=== PATIENT | female | born 1970 | race Caucasian/White ===

== ENCOUNTER → 2016-11-07 | Outpatient (CLI) | payer MEDICAID | END | disposition home or self-care (01) | LOC: RESCLI 02:52 | DX: Z00.00 Encounter for general adult medical examination without abnormal findings (principal); M51.26 Other intervertebral disc displacement, lumbar region; J32.9 Chronic sinusitis, unspecified; G62.9 Polyneuropathy, unspecified; H04.123 Dry eye syndrome of bilateral lacrimal glands ==

== ENCOUNTER → 2016-11-15 | Outpatient (CLI) | payer OTHER ==
[2016-11-15 09:38] LABS: BASO # 0.1 10*3/uL (0.0-0.1); BASO % 0.9 % (0.0-1.0); EOS # 0.3 10*3/uL (0.0-0.4); EOS % 3.6 % (1.0-4.0); HEMATOCRIT 45.2 % (42.0-52.0); HEMOGLOBIN 15.7 g/dl (14.0-18.0); LYMPH # 2.6 10*3/uL (1.3-4.4); LYMPH % 29.7 % (27.0-41.0); MEAN CELL VOLUME 95.4 fl (80.0-94.0); MEAN CORPUSCULAR HGB 33.1 pg (27.0-31.0); MEAN CORPUSCULAR HGB CONC 34.7 g/dl (33.0-37.0); MONO # 0.4 10*3/uL (0.1-1.0); NEUT # 5.3 10*3/uL (2.3-7.9); NEUT % 60.5 % (47.0-73.0); PLATELET COUNT AUTOMATED 259 10*3/uL (130-400); RED BLOOD COUNT 4.74 10*6/uL (4.50-5.90); RED CELL DISTRI WIDTH 12.6 % (0-14.5); WHITE BLOOD COUNT 8.8 10*3/uL (4.8-10.8)
[2016-11-15 09:58] LABS: ALKALINE PHOSPHATASE 145 U/L (45-117); BILIRUBIN, TOTAL 0.7 mg/dl (0.2-1.0); BUN 7 mg/dl (7-24); CARBON DIOXIDE 29 mmol/L (21-32); CHLORIDE 104 mmol/L (98-107); CHOLESTEROL 174 mg/dL (<200); EST GLOM FILT AFRICAN AMERICAN > 60 ml/min; FREE T4 0.87 ng/dl (0.76-1.46); GLUCOSE 92 mg/dL (65-99); HDL CHOLESTEROL 59 mg/dl (40-60); LDL CHOLESTEROL 85 mg/dL (9-159); POTASSIUM 3.8 mmol/L (3.5-5.1); SGOT/AST 38 IU/L (3-35); SGPT/ALT 44 U/L (12-78); SODIUM 139 mmol/L (136-145); TOTAL PROTEIN 7.6 gm/dL (6.4-8.2); TRIGLYCERIDES 150 mg/dl (<150); VLDL CHOLESTEROL 30 mg/dL (6-40)
[2016-11-15 10:07] LABS: HEMOGLOBIN A1c 5.2 % (4.8-5.6)
== END | disposition home or self-care (01) ==
LOC: LAB 08:59
PROVIDERS: Family Medicine
DX: Z00.00 Encounter for general adult medical examination without abnormal findings (principal)

== ENCOUNTER → 2016-11-21 | Outpatient (CLI) | payer OTHER | END | disposition home or self-care (01) | LOC: RESCLI 02:42 | DX: M51.26 Other intervertebral disc displacement, lumbar region (principal); G62.9 Polyneuropathy, unspecified; H04.123 Dry eye syndrome of bilateral lacrimal glands; J30.9 Allergic rhinitis, unspecified; R00.0 Tachycardia, unspecified ==

== ENCOUNTER → 2016-12-26 | Outpatient (CLI) | payer OTHER | END | disposition home or self-care (01) | LOC: RESCLI 02:06 | DX: M51.26 Other intervertebral disc displacement, lumbar region (principal); G62.9 Polyneuropathy, unspecified; H04.123 Dry eye syndrome of bilateral lacrimal glands; J30.9 Allergic rhinitis, unspecified; R00.0 Tachycardia, unspecified; Z72.0 Tobacco use; Z71.6 Tobacco abuse counseling ==

== ENCOUNTER → 2017-01-16 | Outpatient (CLI) | payer OTHER | END | disposition home or self-care (01) | LOC: RESCLI 03:21 | DX: J30.9 Allergic rhinitis, unspecified (principal); M51.26 Other intervertebral disc displacement, lumbar region; G62.9 Polyneuropathy, unspecified; H04.123 Dry eye syndrome of bilateral lacrimal glands; F17.200 Nicotine dependence, unspecified, uncomplicated; Z71.6 Tobacco abuse counseling ==

== ENCOUNTER → 2017-02-21 | Outpatient (CLI) | payer OTHER | END | disposition home or self-care (01) | LOC: RESCLI 02:36 | DX: M51.26 Other intervertebral disc displacement, lumbar region (principal); G62.9 Polyneuropathy, unspecified; F17.200 Nicotine dependence, unspecified, uncomplicated ==

== ENCOUNTER → 2017-03-13 | Outpatient (CLI) | payer OTHER | END | disposition home or self-care (01) | LOC: RESCLI 02:23 | DX: M54.16 Radiculopathy, lumbar region (principal); J45.909 Unspecified asthma, uncomplicated; R12 Heartburn ==

== ENCOUNTER → 2017-03-22 | Outpatient (CLI) | payer OTHER | END | disposition home or self-care (01) | LOC: MRI 00:47 | DX: M47.26 Other spondylosis with radiculopathy, lumbar region (principal); M48.07 Spinal stenosis, lumbosacral region ==

== ENCOUNTER 2017-06-16 15:51 | Emergency (ER) | payer OTHER ==
[~2017-06-16] VITALS: Wt 77.1 kg
[2017-06-16] MEDS ORDERED: CEPHALEXIN500 M1 PO (17:19)
== END 2017-06-16 17:27 | disposition home or self-care (01) ==
LOC: ED 15:51
DX: S91.131A Puncture wound without foreign body of right great toe without damage to nail, initial encounter (principal); F17.200 Nicotine dependence, unspecified, uncomplicated; W22.8XXA Striking against or struck by other objects, initial encounter; Y93.89 Activity, other specified; Y99.8 Other external cause status; Y92.89 Other specified places as the place of occurrence of the external cause

== ENCOUNTER → 2017-10-09 | Outpatient (CLI) | payer OTHER ==
[~2017-10-09] MED LIST: CEPHALEXIN500 M1 PO
== END | disposition home or self-care (01) ==
LOC: RESCLI 10-02 03:51
DX: M51.26 Other intervertebral disc displacement, lumbar region (principal); M54.42 Lumbago with sciatica, left side; G89.29 Other chronic pain; J32.9 Chronic sinusitis, unspecified; F32.9 Major depressive disorder, single episode, unspecified; F41.1 Generalized anxiety disorder; K21.9 Gastro-esophageal reflux disease without esophagitis; Z72.0 Tobacco use; Z71.6 Tobacco abuse counseling

== ENCOUNTER → 2017-11-13 | Outpatient (CLI) | payer OTHER | END | disposition home or self-care (01) | LOC: RESCLI 00:15 | DX: J45.30 Mild persistent asthma, uncomplicated (principal); J40 Bronchitis, not specified as acute or chronic; F41.1 Generalized anxiety disorder; M54.42 Lumbago with sciatica, left side; K21.9 Gastro-esophageal reflux disease without esophagitis; J30.2 Other seasonal allergic rhinitis; F17.210 Nicotine dependence, cigarettes, uncomplicated; F33.9 Major depressive disorder, recurrent, unspecified; Z71.6 Tobacco abuse counseling ==

== ENCOUNTER → 2018-02-22 | Outpatient (CLI) | payer OTHER | END | disposition home or self-care (01) | LOC: RESCLI 09:06 | DX: Z00.01 Encounter for general adult medical examination with abnormal findings (principal); M77.9 Enthesopathy, unspecified; R40.0 Somnolence; M54.10 Radiculopathy, site unspecified; R74.0 Nonspecific elevation of levels of transaminase and lactic acid dehydrogenase [LDH]; M77.11 Lateral epicondylitis, right elbow; F41.1 Generalized anxiety disorder; J40 Bronchitis, not specified as acute or chronic; J45.30 Mild persistent asthma, uncomplicated; J30.2 Other seasonal allergic rhinitis; K21.9 Gastro-esophageal reflux disease without esophagitis; J32.9 Chronic sinusitis, unspecified; F31.30 Bipolar disorder, current episode depressed, mild or moderate severity, unspecified; F17.210 Nicotine dependence, cigarettes, uncomplicated; Z79.899 Other long term (current) drug therapy; Z88.8 Allergy status to other drugs, medicaments and biological substances ==

== ENCOUNTER → 2018-03-21 | Outpatient (CLI) | payer OTHER ==
[2018-03-21 12:32] LABS: BASO # 0.1 10*3/uL (0.0-0.1); BASO % 1.2 % (0.0-1.0); EOS # 0.3 10*3/uL (0.0-0.4); EOS % 4.5 % (1.0-4.0); HEMATOCRIT 41.8 % (42.0-52.0); HEMOGLOBIN 14.5 g/dl (14.0-18.0); LYMPH # 2.2 10*3/uL (1.3-4.4); LYMPH % 34.1 % (27.0-41.0); MEAN CELL VOLUME 94.1 fl (80.0-94.0); MEAN CORPUSCULAR HGB 32.7 pg (27.0-31.0); MEAN CORPUSCULAR HGB CONC 34.7 g/dl (33.0-37.0); MONO # 0.5 10*3/uL (0.1-1.0); MONO % 6.9 % (3.0-9.0); NEUT # 3.4 10*3/uL (2.3-7.9); PLATELET COUNT AUTOMATED 243 10*3/uL (130-400); RED BLOOD COUNT 4.44 10*6/uL (4.50-5.90); WHITE BLOOD COUNT 6.5 10*3/uL (4.8-10.8)
[2018-03-21 13:06] LABS: ALBUMIN 3.8 gm/dl (3.1-4.5); BUN 9 mg/dl (7-24); CHLORIDE 101 mmol/L (98-107); POTASSIUM 3.7 mmol/L (3.5-5.1); SODIUM 136 mmol/L (136-145)
[2018-03-21 13:20] LABS: ALKALINE PHOSPHATASE 160 U/L (45-117); CHOLESTEROL 180 mg/dL (<200); CREATININE 0.98 mg/dL (0.70-1.30); HDL CHOLESTEROL 44 mg/dl (40-60); SGOT/AST 30 IU/L (3-35); SGPT/ALT 33 U/L (12-78); TOTAL PROTEIN 7.3 gm/dL (6.4-8.2); TRIGLYCERIDES 411 mg/dl (<150)
[2018-03-21 14:20] LABS: VITAMIN D, 25-HYDROXY 20.4 ng/mL (30-100)
[2018-03-22 10:03] LABS: HEP B CORE AB TOTAL 006718 Negative (Negative); HEPATITIS B SURFACE AB 006395 Non Reactive (.); HEPATITIS B SURFACE AG Negative (Negative); HEPATITIS Be ANTIGEN 006619 Negative (Negative)
[2018-03-22 15:07] LABS: AB TO HEPATITIS Be AG 006635 Negative (Negative)
== END | disposition home or self-care (01) ==
LOC: LAB 11:40
PROVIDERS: Internal Medicine
DX: Z00.01 Encounter for general adult medical examination with abnormal findings (principal); M54.10 Radiculopathy, site unspecified; M77.9 Enthesopathy, unspecified; R40.0 Somnolence; Z79.899 Other long term (current) drug therapy

== ENCOUNTER → 2018-05-15 | Outpatient (CLI) | payer OTHER ==
[2018-05-15 11:40] LABS: BASO # 0.1 10*3/uL (0.0-0.1); EOS # 0.2 10*3/uL (0.0-0.4); EOS % 3.3 % (1.0-4.0); HEMATOCRIT 40.5 % (42.0-52.0); HEMOGLOBIN 14.1 g/dl (14.0-18.0); LYMPH # 2.4 10*3/uL (1.3-4.4); LYMPH % 34.2 % (27.0-41.0); MEAN CORPUSCULAR HGB 33.4 pg (27.0-31.0); MEAN CORPUSCULAR HGB CONC 34.8 g/dl (33.0-37.0); MEAN PLATELET VOLUME 9.2 fl (9.6-12.3); MONO # 0.6 10*3/uL (0.1-1.0); MONO % 8.3 % (3.0-9.0); NEUT # 3.7 10*3/uL (2.3-7.9); NEUT % 53.1 % (47.0-73.0); PLATELET COUNT AUTOMATED 294 10*3/uL (130-400); RED BLOOD COUNT 4.22 10*6/uL (4.50-5.90); RED CELL DISTRI WIDTH 13.2 % (0-14.5)
[2018-05-15 12:05] LABS: CHOLESTEROL 149 mg/dL (<200); GAMMA GLUTAMYL TRANSPEPTIDASE 235 U/L (15-85); TRIGLYCERIDES 313 mg/dl (<150); VLDL CHOLESTEROL 63 mg/dL (6-40)
[2018-05-15 12:06] LABS: HDL CHOLESTEROL 45 mg/dl (40-60); LDL CHOLESTEROL 41 mg/dL (9-159)
== END | disposition home or self-care (01) ==
LOC: LAB 11:00
PROVIDERS: Internal Medicine
DX: E78.1 Pure hyperglyceridemia (principal); D75.89 Other specified diseases of blood and blood-forming organs; R74.8 Abnormal levels of other serum enzymes

== ENCOUNTER → 2018-05-16 | Outpatient (CLI) | payer OTHER | END | disposition home or self-care (01) | LOC: RESCLI 04:41 | DX: J45.909 Unspecified asthma, uncomplicated (principal); F41.1 Generalized anxiety disorder; K21.9 Gastro-esophageal reflux disease without esophagitis; F33.9 Major depressive disorder, recurrent, unspecified; E78.1 Pure hyperglyceridemia; E55.9 Vitamin D deficiency, unspecified; R74.8 Abnormal levels of other serum enzymes; R11.2 Nausea with vomiting, unspecified; M54.40 Lumbago with sciatica, unspecified side; F17.210 Nicotine dependence, cigarettes, uncomplicated; Z71.6 Tobacco abuse counseling; Z79.899 Other long term (current) drug therapy; Z88.8 Allergy status to other drugs, medicaments and biological substances ==

== ENCOUNTER → 2018-06-28 | Outpatient (CLI) | payer OTHER | END | disposition home or self-care (01) | LOC: RESCLI 08:54 | DX: F33.9 Major depressive disorder, recurrent, unspecified (principal); J45.909 Unspecified asthma, uncomplicated; F41.1 Generalized anxiety disorder; K21.9 Gastro-esophageal reflux disease without esophagitis; E78.1 Pure hyperglyceridemia; E55.9 Vitamin D deficiency, unspecified; R74.8 Abnormal levels of other serum enzymes; R11.2 Nausea with vomiting, unspecified; M54.40 Lumbago with sciatica, unspecified side; M25.521 Pain in right elbow; M25.522 Pain in left elbow; M25.571 Pain in right ankle and joints of right foot; F17.200 Nicotine dependence, unspecified, uncomplicated; Z71.6 Tobacco abuse counseling; Z79.899 Other long term (current) drug therapy ==

== ENCOUNTER → 2018-07-05 | Outpatient (CLI) | payer OTHER | END | disposition home or self-care (01) | LOC: RAD 11:32 | DX: M25.521 Pain in right elbow (principal); M25.571 Pain in right ankle and joints of right foot ==

== ENCOUNTER → 2018-07-13 | Outpatient (CLI) | payer OTHER | END | disposition home or self-care (01) | LOC: RAD 10:13 | DX: M25.561 Pain in right knee (principal); M25.562 Pain in left knee ==

== ENCOUNTER → 2018-07-17 | Outpatient (CLI) | payer OTHER | END | disposition home or self-care (01) | LOC: RESCLI 02:12 | DX: F31.30 Bipolar disorder, current episode depressed, mild or moderate severity, unspecified (principal); J45.909 Unspecified asthma, uncomplicated; F17.200 Nicotine dependence, unspecified, uncomplicated; F41.1 Generalized anxiety disorder; K21.9 Gastro-esophageal reflux disease without esophagitis; E78.1 Pure hyperglyceridemia; E55.9 Vitamin D deficiency, unspecified; R74.8 Abnormal levels of other serum enzymes; R11.2 Nausea with vomiting, unspecified; M25.522 Pain in left elbow; M25.521 Pain in right elbow; M25.571 Pain in right ankle and joints of right foot; M54.40 Lumbago with sciatica, unspecified side; Z71.6 Tobacco abuse counseling ==

== ENCOUNTER 2018-07-30 02:55 | Emergency (ER) | payer BC, OTHER ==
[~2018-07-30] VITALS: Ht 180.3 cm; Wt 81.6 kg
[2018-08-07] MEDS ORDERED: CEPHALEXIN500 M1 PO (17:33)
== END 2018-07-30 04:16 | disposition home or self-care (01) ==
LOC: ED 02:55
DX: S61.412A Laceration without foreign body of left hand, initial encounter (principal); W31.89XA Contact with other specified machinery, initial encounter; Y93.89 Activity, other specified; Y92.89 Other specified places as the place of occurrence of the external cause; Y99.8 Other external cause status

== ENCOUNTER 2018-09-12 14:41 | Emergency (ER) | payer OTHER ==
[~2018-09-12] VITALS: Ht 180.3 cm; Wt 81.6 kg
== END 2018-09-12 16:17 | disposition home or self-care (01) ==
LOC: ED 14:41
DX: S80.01XA Contusion of right knee, initial encounter (principal); M25.562 Pain in left knee; F17.200 Nicotine dependence, unspecified, uncomplicated; W18.39XA Other fall on same level, initial encounter; Y93.89 Activity, other specified; Y92.89 Other specified places as the place of occurrence of the external cause; Y99.8 Other external cause status

== ENCOUNTER 2018-09-18 09:02 | Inpatient (IN) | payer OTHER ==
[2018-09-18] VITALS (7 sets, daily range): BP systolic 80–139; BP diastolic 45–84
[2018-09-18 09:44] LABS: BASO % 0.6 % (0.0-1.0); EOS # 0.1 10*3/uL (0.0-0.4); EOS % 1.3 % (1.0-4.0); HEMATOCRIT 42.4 % (42.0-52.0); HEMOGLOBIN 14.2 g/dl (14.0-18.0); LYMPH # 1.9 10*3/uL (1.3-4.4); LYMPH % 27.9 % (27.0-41.0); MEAN CELL VOLUME 94.4 fl (80.0-94.0); MEAN CORPUSCULAR HGB 31.6 pg (27.0-31.0); MEAN CORPUSCULAR HGB CONC 33.5 g/dl (33.0-37.0); MEAN PLATELET VOLUME 8.3 fl (9.6-12.3); MONO # 0.6 10*3/uL (0.1-1.0); MONO % 8.7 % (3.0-9.0); NEUT # 4.2 10*3/uL (2.3-7.9); NEUT % 61.2 % (47.0-73.0); PLATELET COUNT AUTOMATED 216 10*3/uL (130-400); RED BLOOD COUNT 4.49 10*6/uL (4.50-5.90); RED CELL DISTRI WIDTH 12.8 % (0-14.5); WHITE BLOOD COUNT 6.8 10*3/uL (4.8-10.8)
[2018-09-18 10:00] LABS: ALBUMIN 3.7 gm/dl (3.1-4.5); ALKALINE PHOSPHATASE 173 U/L (45-117); BUN 13 mg/dl (7-24); CHLORIDE 102 mmol/L (98-107); CREATININE 0.94 mg/dL (0.70-1.30); POTASSIUM 3.7 mmol/L (3.5-5.1); SGOT/AST 47 IU/L (3-35); SGPT/ALT 45 U/L (12-78); SODIUM 138 mmol/L (136-145); TOTAL PROTEIN 7.4 gm/dL (6.4-8.2)
[2018-09-18] MEDS ORDERED: PROTONIX40 MG PO (11:21)
[2018-09-18] MEDS ORDERED: FLONASE ALLERG9.9 ML NAS (11:21)
[2018-09-18] MEDS ORDERED: ZYRTEC10 MG PO (11:21)
[2018-09-18] MEDS ORDERED: TRINTELLIX10 MG PO (11:22)
[2018-09-18] MEDS ORDERED: VALIUM10 MG PO (11:22)
[2018-09-18] MEDS ORDERED: VITAMIN D-32000 UNI1 PO (11:23)
[2018-09-18 12:51] LABS: BILIRUBIN NEGATIVE (NEGATIVE); BLOOD NEGATIVE (NEGATIVE); CLARITY CLEAR (CLEAR); COLOR YELLOW (YELLOW); GLUCOSE NEGATIVE (NEGATIVE); KETONE NEGATIVE (NEGATIVE); LEUKO ESTERASE NEGATIVE (NEGATIVE); NITRITE NEGATIVE (NEGATIVE); UROBILINOGEN 0.2 E.U./dl (0.2-1.0)
[2018-09-18 13:05] LABS: URINE AMPHETAMINES < 1000 (1000ng/ml); URINE BARBITURATES < 200 (200ng/ml); URINE BENZODIAZEPINES > 200 (200ng/ml); URINE CANNABINOIDS (THC) < 50 (50ng/ml); URINE COCAINE < 300 (300ng/ml); URINE METHADONE < 300 (300ng/ml); URINE OPIATES < 300 (300ng/ml)
[2018-09-18 13:07] LABS: URINE PHENCYCLIDINE < 25 (25ng/ml)
[2018-09-18 13:08] LABS: BACTERIA TRACE; EPITHELIAL CELLS 0-2; RBC 0-2 rbc/hpf (0-2); WBC 0-2 wbc/hpf (0-5)
[2018-09-19] VITALS: BP 117/72
[2018-09-19 08:00] VITALS: BP 124/80
[2018-09-19 12:00] VITALS: BP 120/77
[2018-09-19 16:00] VITALS: BP 134/87
[2018-09-19 20:00] VITALS: BP 132/78
[2018-09-20] VITALS: BP 133/72
[2018-09-20 08:00] VITALS: BP 104/68
[2018-09-20 12:00] VITALS: BP 128/77
[2018-09-20 16:00] VITALS: BP 112/75
[2018-09-20] MEDS ORDERED: PROVENTIL HFA6.7 GM INH (16:15)
[2018-09-20 20:00] VITALS: BP 117/78
[2018-09-21] VITALS: BP 123/74
[2018-09-21 06:31] LABS: BASO # 0.1 10*3/uL (0.0-0.1); BASO % 1.1 % (0.0-1.0); EOS # 0.2 10*3/uL (0.0-0.4); EOS % 4.7 % (1.0-4.0); HEMOGLOBIN 14.3 g/dl (14.0-18.0); LYMPH # 2.2 10*3/uL (1.3-4.4); LYMPH % 48.9 % (27.0-41.0); MEAN CELL VOLUME 96.5 fl (80.0-94.0); MEAN CORPUSCULAR HGB 31.4 pg (27.0-31.0); MEAN CORPUSCULAR HGB CONC 32.5 g/dl (33.0-37.0); MEAN PLATELET VOLUME 9.4 fl (9.6-12.3); MONO # 0.5 10*3/uL (0.1-1.0); MONO % 11.4 % (3.0-9.0); NEUT # 1.5 10*3/uL (2.3-7.9); NEUT % 33.7 % (47.0-73.0); PLATELET COUNT AUTOMATED 204 10*3/uL (130-400); RED BLOOD COUNT 4.56 10*6/uL (4.50-5.90); RED CELL DISTRI WIDTH 12.6 % (0-14.5); WHITE BLOOD COUNT 4.5 10*3/uL (4.8-10.8)
[2018-09-21 06:59] LABS: CREATININE 1.03 mg/dL (0.70-1.30)
[2018-09-21 12:00] VITALS: BP 128/80
== END 2018-09-21 13:06 | disposition home or self-care (01) | DRG 897 ==
LOC: ED 09:02 → EDHOLD 09:44 → 5E 09:44
PROVIDERS: Family Medicine; ADMIT Internal Medicine
DX: F10.239 Alcohol dependence with withdrawal, unspecified (principal); F41.9 Anxiety disorder, unspecified; F32.9 Major depressive disorder, single episode, unspecified; F17.200 Nicotine dependence, unspecified, uncomplicated; Z79.899 Other long term (current) drug therapy; Z71.6 Tobacco abuse counseling; Y90.5 Blood alcohol level of 100-119 mg/100 ml

== ENCOUNTER 2020-04-14 15:11 | Emergency (ER) | payer SELFPAY ==
[~2020-04-14] VITALS: Wt 65.8 kg
[~2020-04-14 15:11] MED LIST changes: +FLONASE ALLERG9.9 ML NAS; +PROTONIX40 MG PO; +PROVENTIL HFA6.7 GM INH; +TRINTELLIX10 MG PO; +VALIUM10 MG PO; +VITAMIN D-32000 UNI1 PO; +ZYRTEC10 MG PO
[2020-04-14] MEDS ORDERED: NORCO 5-325 TA1 EACH PO (16:23)
== END 2020-04-14 16:28 | disposition home or self-care (01) ==
LOC: ED 15:11
DX: S62.353A Nondisplaced fracture of shaft of third metacarpal bone, left hand, initial encounter for closed fracture (principal); Z79.899 Other long term (current) drug therapy; Z72.0 Tobacco use; W20.8XXA Other cause of strike by thrown, projected or falling object, initial encounter; Y93.89 Activity, other specified; Y92.89 Other specified places as the place of occurrence of the external cause; Y99.8 Other external cause status

== ENCOUNTER → 2020-07-21 | Outpatient (CLI) | payer SELFPAY ==
[~2020-07-21] MED LIST changes: +NORCO 5-325 TA1 EACH PO
== END ==
LOC: COVID19 15:16
PROVIDERS: ATTEND Internal Medicine
DX: Z20.828 Contact with and (suspected) exposure to other viral communicable diseases (principal)

== ENCOUNTER 2021-05-19 18:46 | Emergency (ER) | payer SELFPAY ==
[~2021-05-19] VITALS: Wt 65.8 kg
== END 2021-05-19 23:30 | disposition left against medical advice (07) ==
LOC: ED 18:46
DX: R05.9 Cough, unspecified (principal); R09.89 Other specified symptoms and signs involving the circulatory and respiratory systems; Z53.21 Procedure and treatment not carried out due to patient leaving prior to being seen by health care provider

== ENCOUNTER → 2021-05-25 | Outpatient (CLI) | payer SELFPAY | END | disposition home or self-care (01) | LOC: RAD 16:53 | DX: J98.11 Atelectasis (principal); J40 Bronchitis, not specified as acute or chronic ==

== ENCOUNTER 2022-05-21 07:26 | Emergency (ER) | payer BC ==
[~2022-05-21] VITALS: Ht 180.3 cm; Wt 72.6 kg
[2022-05-21] MEDS ORDERED: MUCINEX DM 30/61 TAB PO (09:15)
== END 2022-05-21 09:19 | disposition home or self-care (01) ==
LOC: ED 07:26
DX: U07.1 COVID-19 (principal); J06.9 Acute upper respiratory infection, unspecified; Z79.899 Other long term (current) drug therapy; Z87.891 Personal history of nicotine dependence

== ENCOUNTER 2022-06-22 14:37 | Emergency (ER) | payer SELFPAY ==
[~2022-06-22] VITALS: Wt 70.3 kg
[~2022-06-22 14:37] MED LIST changes: +MUCINEX DM 30/61 TAB PO
[2022-06-22] MEDS ORDERED: PEPCID20 MG PO (15:08)
[2022-06-22] MEDS ORDERED: MELOXICAM7.5 MG PO (15:08)
[2022-06-22] MEDS ORDERED: PRILOSEC20 M1 PO (15:08)
== END 2022-06-22 15:25 | disposition home or self-care (01) ==
LOC: ED 14:37
DX: K21.9 Gastro-esophageal reflux disease without esophagitis (principal); F17.200 Nicotine dependence, unspecified, uncomplicated; Z79.899 Other long term (current) drug therapy; Z98.890 Other specified postprocedural states

== ENCOUNTER 2022-08-15 10:36 | Emergency (ER) | payer SELFPAY ==
[~2022-08-15] VITALS: Ht 182.8 cm; Wt 72.6 kg
[~2022-08-15 10:36] MED LIST changes: +MELOXICAM7.5 MG PO; +PEPCID20 MG PO; +PRILOSEC20 M1 PO
[2022-08-15] MEDS ORDERED: Motrin,Rufen800 MG PO (11:06)
[2022-08-15] MEDS ORDERED: AMOXICILLIN500 M2 PO (11:06)
== END 2022-08-15 11:24 | disposition home or self-care (01) ==
LOC: ED 10:36
DX: K08.89 Other specified disorders of teeth and supporting structures (principal); F10.10 Alcohol abuse, uncomplicated; Z87.891 Personal history of nicotine dependence

== ENCOUNTER 2022-08-18 17:54 | Emergency (ER) | payer SELFPAY ==
[~2022-08-18] VITALS: Ht 180.3 cm; Wt 70.3 kg
[~2022-08-18 17:54] MED LIST changes: +AMOXICILLIN500 M2 PO; +Motrin,Rufen800 MG PO
[2022-08-18] MEDS ORDERED: HYDROCODONE-AC1 EACH PO (18:30)
[2022-08-18] MEDS ORDERED: CLEOCIN HCL300 MG PO (18:30)
== END 2022-08-18 18:33 | disposition home or self-care (01) ==
LOC: ED 17:54
DX: K08.89 Other specified disorders of teeth and supporting structures (principal); Z79.899 Other long term (current) drug therapy; F17.200 Nicotine dependence, unspecified, uncomplicated

== ENCOUNTER 2024-03-07 10:59 | Emergency (ER) | payer MEDICAID ==
[~2024-03-07] VITALS: Ht 180.3 cm; Wt 70.3 kg
[~2024-03-07 10:59] MED LIST changes: +CLEOCIN HCL300 MG PO; +HYDROCODONE-AC1 EACH PO
[2024-03-07 11:58] LABS: BASO # 0.1 10*3/uL (0.0-0.1); BASO % 0.7 % (0.0-1.0); EOS # 0.4 10*3/uL (0.0-0.4); EOS % 3.4 % (1.0-4.0); HEMATOCRIT 42.8 % (42.0-52.0); LYMPH # 2.6 10*3/uL (1.3-4.4); MEAN CELL VOLUME 95.3 fl (80.0-94.0); MEAN CORPUSCULAR HGB 31.6 pg (27.0-31.0); MEAN CORPUSCULAR HGB CONC 33.2 g/dl (33.0-37.0); MEAN PLATELET VOLUME 8.4 fl (9.6-12.3); MONO # 0.7 10*3/uL (0.1-1.0); MONO % 6.7 % (3.0-9.0); NEUT # 6.6 10*3/uL (2.3-7.9); PLATELET COUNT AUTOMATED 291 10*3/uL (130-400); RED BLOOD COUNT 4.49 10*6/uL (4.50-5.90); RED CELL DISTRI WIDTH 12.7 % (0-14.5); WHITE BLOOD COUNT 10.3 10*3/uL (4.8-10.8)
[2024-03-07 12:12] LABS: BUN 8 mg/dl (9-23); CHLORIDE 105 mmol/L (98-107)
[2024-03-07] MEDS ORDERED: TRAMADOL HCL50 MG PO ×2 (13:24→13:30)
[2024-03-07] MEDS ORDERED: AMOX-CLAV 875-1 EACH PO (13:24)
== END 2024-03-07 13:50 | disposition home or self-care (01) ==
LOC: ED 10:59
PROVIDERS: Nurse Practitioner
DX: K04.7 Periapical abscess without sinus (principal); F41.9 Anxiety disorder, unspecified; K21.9 Gastro-esophageal reflux disease without esophagitis; F10.10 Alcohol abuse, uncomplicated; Z98.890 Other specified postprocedural states; Z72.0 Tobacco use

== ENCOUNTER 2024-04-24 15:35 | Emergency (ER) | payer MEDICAID ==
[~2024-04-24] VITALS: Wt 70.3 kg
[~2024-04-24 15:35] MED LIST changes: +AMOX-CLAV 875-1 EACH PO; +TRAMADOL HCL50 MG PO
[2024-04-24 16:41] LABS: BASO # 0.1 10*3/uL (0.0-0.1); BASO % 1.2 % (0.0-1.0); EOS # 0.2 10*3/uL (0.0-0.4); HEMATOCRIT 42.9 % (42.0-52.0); LYMPH # 2.2 10*3/uL (1.3-4.4); LYMPH % 29.9 % (27.0-41.0); MEAN CELL VOLUME 94.9 fl (80.0-94.0); MEAN CORPUSCULAR HGB 31.6 pg (27.0-31.0); MEAN CORPUSCULAR HGB CONC 33.3 g/dl (33.0-37.0); MEAN PLATELET VOLUME 8.7 fl (9.6-12.3); MONO # 0.4 10*3/uL (0.1-1.0); MONO % 5.2 % (3.0-9.0); NEUT # 4.4 10*3/uL (2.3-7.9); NEUT % 60.4 % (47.0-73.0); PLATELET COUNT AUTOMATED 285 10*3/uL (130-400); RED BLOOD COUNT 4.52 10*6/uL (4.50-5.90); RED CELL DISTRI WIDTH 12.9 % (0-14.5); WHITE BLOOD COUNT 7.3 10*3/uL (4.8-10.8)
[2024-04-24 17:00] LABS: BUN 6 mg/dl (9-23); CHLORIDE 104 mmol/L (98-107); POTASSIUM 3.6 mmol/L (3.4-5.1)
[2024-04-24] MEDS ORDERED: Tdap Vaccine 0.5 ML SYR (Adult Vaccine) IM ONE (17:05)
[2024-04-24] MEDS ORDERED: VIBRAMYCIN100 MG PO (18:20)
[2024-04-24] MEDS ORDERED: CEPHALEXIN500 M1 PO (18:20)
[2024-04-24] MEDS ORDERED: Doxycycline Hyclate 100 MG CAP PO ONE (18:25)
[2024-04-24] MEDS ORDERED: CEPHALEXIN 500 MG CAP PO ONE (18:25)
== END 2024-04-24 19:20 | disposition home or self-care (01) ==
LOC: ED 15:35
PROVIDERS: Nurse Practitioner Family
DX: L08.9 Local infection of the skin and subcutaneous tissue, unspecified (principal); K21.9 Gastro-esophageal reflux disease without esophagitis; F41.9 Anxiety disorder, unspecified; F32.A Depression, unspecified; F17.200 Nicotine dependence, unspecified, uncomplicated

== ENCOUNTER 2024-08-14 10:27 | Emergency (ER) | payer BC ==
[~2024-08-14] VITALS: Ht 177.8 cm; Wt 73.0 kg
[~2024-08-14 10:27] MED LIST changes: +VIBRAMYCIN100 MG PO
[2024-08-14] MEDS ORDERED: Acetaminophen/Oxycodone 5 MG/325 MG TABLET PO ONE (10:45)
[2024-08-14] MEDS ORDERED: Amoxicillin/Clavulanate Pota 875 MG TAB PO ONE (10:45)
[2024-08-14] MEDS ORDERED: MELOXICAM15 MG PO (10:45)
[2024-08-14] MEDS ORDERED: AMOX-CLAV 875-1 EACH PO (10:45)
== END 2024-08-14 10:50 | disposition home or self-care (01) ==
LOC: ED 10:27
DX: K04.7 Periapical abscess without sinus (principal); F41.9 Anxiety disorder, unspecified; K21.9 Gastro-esophageal reflux disease without esophagitis; F17.210 Nicotine dependence, cigarettes, uncomplicated; F10.10 Alcohol abuse, uncomplicated; Z98.890 Other specified postprocedural states

== ENCOUNTER 2025-04-11 09:07 | Emergency (ER) | payer MEDICAID ==
[~2025-04-11] VITALS: Ht 180.3 cm; Wt 70.3 kg
[~2025-04-11 09:07] MED LIST changes: +MELOXICAM15 MG PO
[2025-04-11] MEDS ORDERED: CLINDAMYCIN HC300 MG PO (09:33)
[2025-04-11] MEDS ORDERED: NAPROSYN500 MG PO (09:33)
== END 2025-04-11 09:38 | disposition home or self-care (01) ==
LOC: ED 09:07
DX: K04.7 Periapical abscess without sinus (principal); K02.9 Dental caries, unspecified; F17.200 Nicotine dependence, unspecified, uncomplicated; Z98.890 Other specified postprocedural states

== ENCOUNTER → 2025-05-07 | Outpatient (CLI) | payer MEDICAID ==
[~2025-05-07] MED LIST changes: +CLINDAMYCIN HC300 MG PO; +NAPROSYN500 MG PO
[2025-05-07 16:01] LABS: BILIRUBIN Negative (Negative); BLOOD Negative (Negative); CLARITY Clear (Clear); COLOR Yellow (Yellow); KETONE Negative (Negative); LEUKO ESTERASE Negative (Negative); NITRITE Negative (Negative); PH 6.0 (4.5-8.0); SPECIFIC GRAVITY <= 1.005 (1.001-1.030); UROBILINOGEN 0.2 E.U./dl (0.0-1.0)
[2025-05-07 16:04] LABS: BASO # 0.1 10*3/uL (0.0-0.1); BASO % 0.9 % (0.0-1.0); EOS # 0.2 10*3/uL (0.0-0.4); EOS % 3.3 % (1.0-4.0); MEAN CELL VOLUME 93.6 fl (80.0-94.0); MEAN CORPUSCULAR HGB 31.6 pg (27.0-31.0); MEAN PLATELET VOLUME 8.6 fl (9.6-12.3); MONO # 0.4 10*3/uL (0.1-1.0); MONO % 5.0 % (3.0-9.0); NEUT # 3.7 10*3/uL (2.3-7.9); NEUT % 49.6 % (47.0-73.0); NUCLEATED RED BLOOD CELL 0.0 % (0.0-0.0); NUCLEATED RED BLOOD CELL 0.0 10*3/uL (0.0-0.0); PLATELET COUNT AUTOMATED 284 10*3/uL (130-400); RED CELL DISTRI WIDTH 13.1 % (0-14.5); RETICULOCYTE % 1.01 % (0.50-2.50)
[2025-05-07 16:15] LABS: EPITHELIAL CELLS 0-2; WBC 0-2 wbc/hpf (0-5)
[2025-05-07 16:40] LABS: BUN 7 mg/dl (9-23); GAMMA GLUTAMYL TRANSFERASE 37 U/L (0-73); LDL CHOLESTEROL 63 mg/dL (9-159); SGPT/ALT 16 U/L (5-49); T3 UPTAKE 35.9 % (22.4-36.7); THYROXINE (T4) TOTAL 5.6 ug/dl (4.5-10.9)
[2025-05-07 16:42] LABS: VITAMIN D, 25-HYDROXY 44.9 ng/mL (30-100)
[2025-05-08 15:07] LABS: ANTI-DSDNA ANTIBODIES 2 IU/mL (0-9)
== END | disposition home or self-care (01) ==
LOC: LAB 15:38
PROVIDERS: ATTEND Family Medicine
DX: M47.817 Spondylosis without myelopathy or radiculopathy, lumbosacral region (principal); M48.07 Spinal stenosis, lumbosacral region; J98.4 Other disorders of lung

== ENCOUNTER 2025-05-12 10:49 | Emergency (ER) | payer MEDICAID ==
[~2025-05-12] VITALS: Ht 180.3 cm; Wt 70.3 kg
[2025-05-12 11:25] LABS: BASO # 0.1 10*3/uL (0.0-0.1); BASO % 1.5 % (0.0-1.0); EOS # 0.3 10*3/uL (0.0-0.4); EOS % 4.1 % (1.0-4.0); MEAN CELL VOLUME 94.8 fl (80.0-94.0); MEAN CORPUSCULAR HGB 31.5 pg (27.0-31.0); MEAN PLATELET VOLUME 8.7 fl (9.6-12.3); MONO # 0.5 10*3/uL (0.1-1.0); MONO % 6.5 % (3.0-9.0); NEUT # 4.3 10*3/uL (2.3-7.9); NEUT % 58.0 % (47.0-73.0); NUCLEATED RED BLOOD CELL 0.0 % (0.0-0.0); NUCLEATED RED BLOOD CELL 0.0 10*3/uL (0.0-0.0); PLATELET COUNT AUTOMATED 323 10*3/uL (130-400); RED CELL DISTRI WIDTH 13.2 % (0-14.5)
[2025-05-12 11:44] LABS: BUN 8 mg/dl (9-23)
== END 2025-05-12 12:59 | disposition home or self-care (01) ==
LOC: ED 10:49
PROVIDERS: Nurse Practitioner Family
DX: R07.81 Pleurodynia (principal); R55 Syncope and collapse; F17.200 Nicotine dependence, unspecified, uncomplicated; Z98.890 Other specified postprocedural states; W18.39XA Other fall on same level, initial encounter; Y93.89 Activity, other specified; Y92.091 Bathroom in other non-institutional residence as the place of occurrence of the external cause; Y99.8 Other external cause status